=== PATIENT | male | born 1970 | race Caucasian/White ===

== ENCOUNTER 2025-03-10 18:54 | Emergency (ER) | payer MEDICAID, SELFPAY ==
[2025-03-10 18:56] VITALS: BP 103/76; PULSE 76; RESP 15; TEMP 35.8; O2SAT 97; BMI 25.8
--- NOTE | 2025-03-10 19:20 | RAD_ITS ---
EXAM: XR Left Ankle Complete, 3 or More Views CLINICAL INDICATION: INJURY TECHNIQUE: Frontal, lateral and oblique views of the left ankle. COMPARISON: No relevant prior studies available. FINDINGS: BONES/JOINTS: See below. SOFT TISSUES: Soft tissue swelling without acute fracture. RAD/Ankle min 3 Views IMPRESSION: 1. Soft tissue swelling without acute fracture. 2. If symptoms persist, further evaluation with CT is recommended. Reading Location: [id number]
--- NOTE | 2025-03-10 21:10 | EDS_ITS ---
HPI History of Present Illness Chief Complaint: Lower Extremity Injury Narrative Narrative: 54-year-old male who denies significant past medical history presents with injury to his left ankle that he sustained remotely. He states this was several days ago, on the weekend he was doing weed whacking and stepped down into a dip. He suffered an injury to his left ankle. While he fell, he did not hit his head, there was no loss of consciousness. He denies other injury but states he has been walking on his left ankle. It was hurting him more today because he drives standard stick shift. His pain is mainly on the inside and outside of his left ankle. No proximal fibular head tenderness or pain in his foot. He has been taking ibuprofen with mild relief. PFSH PFS Medical History GERD (gastroesophageal reflux disease) Allergy/AdvReac Type Severity Reaction Status Date / Time ciprofloxacin (From Cipro) Allergy Intermediate Other Verified 03/10/25 18:56 naproxen Allergy Intermediate Other Verified 03/10/25 18:56 Surgical History Hx of cholecystectomy Social History Smoking Status: Current every day smoker tobacco type: cigarettes ROS ROS ED ROS Narrative Review of systems positive for left ankle pain and swelling. Hurts on the inside and outside of his left ankle. Denies other injuries. No hitting of his head or loss of consciousness. EXAM Physical Exam Narrative Exam Narrative: Focused exam of the left ankle reveals diffuse tenderness to palpation with mild swelling at the talofibular ligament area and along the medial malleolus. No pain at the base of the fifth metatarsal. No palpable Achilles tendon deficit. Palpable dorsalis pedis pulse. No proximal fibular head tenderness. No crepitance. Const Vital Signs: 03/10/25 18:56 03/10/25 21:33 Temperature 96.5 F L 98 F Temperature Source Temporal Pulse Rate 76 71 Respiratory Rate 15 18 Blood Pressure 103/76 109/66 Blood Pressure Mean 85 80 Pulse Ox 97 99 Oxygen Delivery Method Room Air MDM MDM MDM Narrative Medical decision making narrative: Differential diagnosis includes but not limited to ankle fracture versus ankle sprain. I have low clinical suspicion for an Achilles tendon rupture. I offer the patient an ice pack but he declines. X-rays were obtained per protocol and interpreted by myself independently as no evidence of an acute fracture. I reviewed the radiology report which comments on soft tissue swelling without acute fracture. At this point in time, I feel he can be discharged to follow- up. He will continue his [id number] ibuprofen. I offered him crutches and an Aircast. He excepted this. At this point in time, I feel he can be discharged to follow-up with his primary care provider, but he was also referred to podiatry to follow-up as needed. Return instructions to the emergency department were reviewed. Disposition is discharged home in stable condition. History & Record Review Discussion w/independent historian: Patient Radiography X-Ray: Read by ED Physician, Read by Radiologist and No Fracture Diagnostic Testing: Clinical Impression(s) from Imaging Studies Ankle X-Ray 03/10/25 19:20 IMPRESSION: 1. Soft tissue swelling without acute fracture. 2. If symptoms persist, further evaluation with CT is recommended. Reading Location: [facility] Discharge Plan Triage Chief Complaint: Lower Extremity Injury ED Provider: Walter Mcneal Dx/Rx/DC Orders Clinical Impression: Left ankle sprain, Fall Instructions: ED Ankle Sprain (Adult) Primary Care Provider: Rachael Cruz Referrals: Joe Green DPM [Med Staff - Active Staff] - 10-14 Days if not better Rachael Cruz, [employer] [Primary Care Provider] - 1-2 Weeks Activity Restrictions/Additional Instructions: Continue ibuprofen as needed for pain. Wear your Aircast for support, and use y our crutches. Continue ice and elevation of your left ankle at home. Return with new or worsening symptoms. Otherwise, follow-up with your primary care provider and/or podiatry. Print Language: Togolese Disposition Disposition: Home, Self Care Discharge Date/Time: 03/10/25 21:38
[2025-03-10 21:33] VITALS: BP 109/66; PULSE 71; RESP 18; TEMP 36.6; O2SAT 99
== END 2025-03-10 21:38 | disposition home or self-care (01) ==
PROVIDERS: Emergency Provider Emergency Medicine; PCP Nurse Practitioner Family; Visit Provider Emergency Medicine
DX: S93.402A Sprain of unspecified ligament of left ankle, initial encounter (principal); K21.9 Gastro-esophageal reflux disease without esophagitis; F17.210 Nicotine dependence, cigarettes, uncomplicated; W17.89XA Other fall from one level to another, initial encounter; Y93.H2 Activity, gardening and landscaping
CPT/HCPCS: 73610; 99284